=== PATIENT | female | born 1990 | race Caucasian/White ===

== ENCOUNTER 2023-08-30 00:01 | Inpatient (IN) ==
[2023-08-30] MEDS ORDERED: LIDOCAINE 1% LOCAL 20 ML VIAL INFIL PRN (01:38)
[2023-08-30] MEDS ORDERED: OXYTOCIN 30 UNITS/500 ML BAG IV PRN ×2 (01:38→04:36)
[2023-08-30] MEDS: LACTATED RINGER'S 1,000 ML IV PRN ×2 (01:42→03:00)
--- NOTE | 2023-08-30 01:54 | History & Physical Report ---
Date of Service August 30, 2023 Assessment & Plan (1) SROM (spontaneous rupture of membranes): (2) Gestational diabetes mellitus (GDM) affecting : Plan 32 yo G1 at 38 5/7 wga presents w/ srom in labor VSS Fetus cat 2, improving w/ repositioning Labor - grossly ruptured and mendoza nicely. Reviewed plan A1GDM - BG GBS neg desires unmedicated delivery History of Present Illness Chief Complaint: LOF, ctx Primary Care Provider: NO PCP 32 yo G1 at 38 1/7 wga presents w/ c/o LOF, ctx. Called w/ c/o LOF with large gush at 1115pm and ctx that started shortly after. 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: G1 regular cycles denies hx STIs Allergies Allergy/AdvReac Type Severity Reaction Status Date / Time metoclopramide [From Reglan] AdvReac Anxiety Verified 08/30/23 00:26 Home Medications Medication Instructions Recorded Confirmed Type prenat.vits,danelle,[id number] 1 tab PO DAILY 01/28/23 08/30/23 History acetone (urine) test (Ketone Urine #50 ea 05/19/23 08/26/23 Rx Test strips) blood sugar diagnostic (OneTouch #150 ea 05/19/23 08/26/23 Rx Verio test strips) blood-glucose meter (OneTouch #1 ea 05/19/23 08/26/23 Rx Verio Reflect Meter) lancets 33 gauge #150 ea 05/19/23 08/26/23 Rx citalopram 20 mg tablet (Celexa) 30 mg PO DAILY 07/15/23 08/30/23 History Patient History Medical History (Updated 08/30/23 @ 01:52 by Janice Harris MD) Post traumatic stress disorder GI problem Varicella vaccine Hypotension Family History (Updated 01/28/23 @ 13:25 by Lisa Travis, TY) Sister Lupus Kidney disease Heart disease Mother Depression Grandmother (Maternal) Breast cancer Social History (Updated 01/28/23 @ 13:26 by Lisa Travis, TY) Smoking Status: Former smoker Tobacco Type: E-cigarettes / Vaping Do You Dip or Chew Tobacco: No; Hx Alcohol Use: No Hx Substance Use: No Preferred Language: Afghan Communication Ability: Effective Vehicle Refinisher Required: No Beliefs That Will Affect Care: None marital status: marital status details: Ruddy Orantes [phone] Current Living Situation: Spouse Current Living Situation Comment: lives with current occupational status: employed current occupation: works from Home- [employer] Other Information That Helps Us Care for You: Yes (Prior service, anxiety.) Feels Safe at Home: Yes Safety Concerns: Feels Safe At This Time Assistive Devices: Glasses Physical Exam Genitourinary: OB Exam Abdomen: + vertex Manual OB Exam: + cervical dilation 4 cm, + cervical effacement 80%, + station -2 and + amniotic fluid (michael ssly ruptured) OB Exam Monitor Tracing: + external FHT monitor used, + external uterine monitor used and + category II (145/mod/+accel/intermit variables) Results & Data Vital Signs (Past 12 Hours) Vital Signs Temp Pulse Resp BP 08/30/23 00:24 80 129/76 08/30/23 00:15 98.6 F 16 Laboratory Results OB Labs: Blood Type O Positive 02/15/23 Antibody Screen NEGATIVE 02/15/23 Hemoglobin 10.2 g/dl (12.0-16.0) L 07/28/23 Hematocrit 32.4 % (37.0-47.0) L 07/28/23 Mean Corpuscular Volume 83.5 fL (80.0-100.0) 07/28/23 Platelet Count 325 K/uL (130-400) 07/28/23 Rubella IgG Antibody Immune (Immune) 02/15/23 Rapid Plasma Reagin Nonreactive (Nonreactive) 02/15/23 Hepatitis B Surface Antigen. NON-REACTIVE (NON-REACTIVE) 02/15/23 Hepatitis C Antibody (EIA) NON-REACTIVE (NON-REACTIVE) 02/15/23 HIV (1&2) Ag and Ab Confirmation NON-REACTIVE (NON-REACTIVE) 02/15/23 Glucose 1 Hour 50 gm Load 141 mg/dl (70-130) H 03/29/23 Maternal Serum Alpha Fetoprotein 54.0 ng/mL 03/29/23 OB Optional Labs: Chlamydia trachomatis RNA Not Detected (NotDetected) 02/15/23 Neisseria gonorrhoeae RNA Not Detected (NotDetected) 02/15/23 Alpha Fetoprotein Triple Screen SEE NOTE 03/29/23 low risk cfdna gbs neg Diagnostic Findings 08/12 EFW 33%, post plac Coding Level of Care Code None Diagnoses SROM (spontaneous rupture of membranes) Gestational diabetes mellitus (GDM) affecting O24.419
[2023-08-30] MEDS ORDERED: SODIUM CHLORIDE 0.9% PF INJ 10 ML VIAL ONE (02:03)
[2023-08-30] MEDS ORDERED: fentANYL 2 MCG/ML BUPIVacaine 0.125%-NSS 100ML BAG ONE (02:03)
[2023-08-30] MEDS ORDERED: LIDOCAINE 2%/EPINEPHRINE 1:200,000 20 ML PF ONE (02:03)
[2023-08-30] MEDS ORDERED: ePHEDrine sulfate 50 MG/ML AMP ONE (02:03)
[2023-08-30] MEDS ORDERED: BUPIVACAINE 0.25% PF 30 ML VIAL ONE (02:03)
[2023-08-30] MEDS ORDERED: fentaNYL citrate PF 100 MCG/2 ML VIAL ONE (02:03)
[2023-08-30 02:16] LABS: Hematocrit (blood only) 31.4 % (37.0-47.0); Mean Corpuscular Hemoglobin 25.4 pg (25.0-34.0); Mean Corpuscular Hgb Conc 31.8 g/dL (32.0-36.0); Mean Corpuscular Volume 79.9 fL (80.0-100.0); Mean Platelet Volume 10.7 fL (9.4-12.4); Platelet Count 311 K/uL (130-400); RDW Standard Deviation 43.6 fL (36.4-46.3); Red Blood Count 3.93 M/uL (4.20-5.40); White Blood Count 12.98 K/ul (4.8-10.8)
[2023-08-30] MEDS ORDERED: BUPIVACAINE 0.25% PF 30 ML VIAL EPI STA (02:33)
[2023-08-30] MEDS ORDERED: diphenhydrAMINE 50 MG/ML VIAL IV PRN (02:33)
[2023-08-30] MEDS ORDERED: SODIUM CHLORIDE 0.9% PF INJ 10 ML VIAL EPI STA (02:33)
[2023-08-30] MEDS ORDERED: NALBUPHINE HCL 5 MG in SYRINGE 0 ML IV PRN (02:33)
[2023-08-30] MEDS ORDERED: ePHEDrine sulfate 50 MG/ML AMP IV PRN (02:33)
[2023-08-30] MEDS ORDERED: NALOXONE HCL 1 MG in SODIUM CHLORIDE 0.9% 1,000 ML IV PRN (02:33)
[2023-08-30] MEDS ORDERED: fentaNYL citrate PF 100 MCG/2 ML VIAL EPI STA (02:33)
[2023-08-30] MEDS ORDERED: BUPIVACAINE 0.25% PF 30 ML VIAL EPI PRN (02:33)
[2023-08-30] MEDS ORDERED: LIDOCAINE 2% MPF LOCAL 5 ML VIAL EPI PRN (02:33)
[2023-08-30] MEDS ORDERED: fentANYL 2 MCG/ML BUPIVacaine 0.125%-NSS 100ML BAG EPI PRN (02:33)
[2023-08-30] MEDS ORDERED: LIDOCAINE 2%/EPINEPHRINE 1:200,000 20 ML PF EPI STA (02:33)
[2023-08-30] MEDS ORDERED: SODIUM CHLORIDE 0.9% PF INJ 10 ML VIAL EPI PRN (02:33)
[2023-08-30] MEDS ORDERED: NALOXONE HCL 0.4 MG/1 ML VIAL/CARP IV PRN (02:33)
[2023-08-30] MEDS ORDERED: ROPIVACAINE 0.5% PF 5 MG/ML 20 ML VIAL EPI PRN (02:33)
[2023-08-30] MEDS ORDERED: fentaNYL citrate PF 100 MCG/2 ML VIAL EPI PRN (02:33)
--- NOTE | 2023-08-30 02:33 | Anesthesiology Consultation ---
Date of Service August 30, 2023 Assessment & Plan (1) Encounter for pre-operative examination: Chart Review Chart Review: Patient NOT seen in Pre Admission Testing and Acceptable Risk for Labor Epidural Consults Requested none History Height/Weight Height: 5 ft 9 in Weight: 92.805 kg Allergies Allergy/AdvReac Type Severity Reaction Status Date / Time metoclopramide [From Reglan] AdvReac Anxiety Verified 08/30/23 00:26 Medications Home Medications Medication Instructions Recorded Confirmed Last Taken prenat.vits,danelle,[id number] 1 tab PO DAILY 01/28/23 08/30/23 08/29/23 08:00 acetone (urine) test (Ketone Urine #50 ea 05/19/23 08/26/23 Unknown Test strips) blood sugar diagnostic (OneTouch #150 ea 05/19/23 08/26/23 Unknown Verio test strips) blood-glucose meter (OneTouch #1 ea 05/19/23 08/26/23 Unknown Verio Reflect Meter) lancets 33 gauge #150 ea 05/19/23 08/26/23 Unknown citalopram 20 mg tablet (Celexa) 30 mg PO DAILY 07/15/23 08/30/23 08/29/23 20:00 Active Medications Generic Name Dose Route Start Last Admin Trade Name Freq PRN Reason Stop Dose Admin Lactated Ringer's 1,000 mls @ 125 mls/hr 08/30/23 01:38 08/30/23 01:42 Lr IV 09/01/23 01:37 999 mls/hr .Q8H PRN Administration L&D Protocol Protocol Past Medical History Medical History Post traumatic stress disorder GI problem Varicella vaccine Hypotension Past Family History Family History Sister Lupus Kidney disease Heart disease Mother Depression Grandmother (Maternal) Breast cancer Social History Smoking Status: Former smoker Do You Dip or Chew Tobacco: No Hx Alcohol Use: No Hx Substance Use: No Physical Exam Vital Signs Last Vital Signs Temp 98.6 F 08/30/23 00:15 Pulse 88 08/30/23 02:31 Resp 16 08/30/23 00:15 BP 129/76 08/30/23 00:24 Pulse Ox 93 08/30/23 02:31 Testing Laboratory Results 08/30/23 01:54 08/30/23 01:46 POC Glucose 87
--- NOTE | 2023-08-30 04:17 | Delivery Summary ---
Vaginal Delivery Summary Date of Service August 30, 2023 Vaginal Delivery Summary PREOPERATIVE DIAGNOSIS: 1. Single intrauterine at 38 5/7 wga 2. SROM 3. A1GDM 4. SMA carrier POSTOPERATIVE DIAGNOSIS: 1. Single intrauterine at 38 5/7 wga 2. SROM 3. A1GDM 4. SMA carrier 5. Delivered PROCEDURE: 1. Normal spontaneous vaginal delivery. SURGEON: Janice Harris MD ANESTHESIA: Epidural. ESTIMATED BLOOD LOSS: 300 mL FLUIDS: Continuous LR. URINE OUTPUT: None. COMPLICATIONS: None. CONDITION: Stable. INDICATIONS: 32 yo G1 at 38 5/7 wga presented w/ SROM and contractions, 4cm on arrival. She received an epidural but quickly progressed to complete and desired to push FINDINGS: A viable male infant, weight pending with Apgars of 8 and 8 at 1 and 5 minutes respectively. SPECIMEN: Cord blood OPERATIVE REPORT: The patient progressed to 10 cm, 100% effaced and +2 station, pushed over intact perineum with anesthesia to deliver a viable male infant, weight and Apgars as above. Head of delivered in YONG position. Nuchal cord x 2 was noted and delivered through as could not reduce. Body and shoulders were delivered without difficulty. was delivered to maternal abdomen and nursing staff. Delayed cord clamping was performed for 60 seconds. Cord was clamped and cut. Cord blood was obtained. Placenta delivered spontaneously intact with 3-vessel cord. IV oxytocin and fundal massage were given for excellent hemostasis. Vagina, cervix, perineum, and placenta were inspected. A vaginal laceration was noted and repaired using 3-0 vicryl. Hemostatic labial lacerations bilaterally did not need repaired. Sponge and needle counts correct x2. No sponges were left behind. Mother and stable in immediate period. [facility] [place]aginal Delivery Charge Vaginal Delivery Codes: 46758 global code for the antepartum, delivery, and post- Delivery Type Details: [facility]
[2023-08-30] MEDS ORDERED: bisacodyL 10 MG SUPP PR PRN (04:36)
[2023-08-30] MEDS ORDERED: BENZOCAINE 20% SPRY 85 APPLN/85 GM CAN EXT PRN (04:36)
[2023-08-30] MEDS ORDERED: ACETAMINOPHEN 325 MG TAB PO PRN (04:36)
[2023-08-30] MEDS ORDERED: DIPHTHERIA/TETANUS/PERTUSSIS Vaccine (Tdap, Age 7+yrs) 0.5mL SYR/VL IM ONE (04:36)
[2023-08-30] MEDS ORDERED: HYDROCORTISONE ACETATE 25 MG SUPP PR PRN (04:36)
--- NOTE | 2023-08-30 08:24 | Anesthesia Procedure Note ---
Date of Service August 30, 2023 Anesthesia Post Epidural Note Vital Signs Vital Signs: Temp Pulse Resp BP Pulse Ox 98.4 F 90 18 120/63 97 08/30/23 02:33 08/30/23 06:14 08/30/23 05:10 08/30/23 06:14 08/30/23 05:08 Pain Intensity Lower Abdomen: Pain Intensity: 0 Notes Mental Status: alert / awake / arousable and participated in evaluation Nausea / Vomiting: adequately controlled Pain: adequately controlled Airway Patency, RR, SpO2: stable & adequate BP & HR: stable & adequate Hydration State: stable & adequate Neuraxial Anesthesia: was administered and sensory block is resolving Anesthetic Complications: no major complications apparent and Pt Satisfied with anesthetic care Epidural: Removed without complications and With tip intact
[2023-08-30] MEDS: PRENATAL VITAMIN 1 TAB PO SCH (09:45)
[2023-08-30] MEDS: DOCUSATE SODIUM 100 MG CAP PO SCH ×2 (09:45→21:36)
[2023-08-30] MEDS: FERROUS SULFATE 325 MG TAB PO SCH (09:46)
[2023-08-30] MEDS: CITALOPRAM 20 MG TAB PO SCH (09:46)
--- NOTE | 2023-08-31 07:36 | Obstetrical Progress Note ---
Date of Service August 31, 2023 Assessment & Plan (1) care following vaginal delivery: Plan: Doing well encourage ambulation pain control dc today Admission and Anticipated Discharge Date Admission Date: August 30, 2023 Supervising Physician Co-Signing Physician Notes Resident Physician Supervision Note: I was present with Dr. Owens during the history and exam. I discussed the case with the resident and agree with the findings and plan as documented in the note. Any exceptions or clarifications are listed here: [None] Documented By: Opal Jean Baptiste MD, FACOG Subjective 32 yo post day 1 s/p Ambulation: ambulating normally Voiding: no voiding problems Passing Gas:: Yes Diet Tolerance:: regular diet Lochia:: Small Feeding Type:: breast feeding Current Pain Level: mild Resting comfortably this AM in NAD. Denies SHARP, CP, SOB, N/V/D, LE pain/swelling. Review of Systems Review of Systems: reviewed, per HPI Physical Exam Physical Exam: General: patient resting comfortably, NAD, non-toxic in appearance, answers questions appropriately. Skin: warm, dry, intact HEENT: NC/AT, anicteric sclera, conjunctiva without injection, moist mucus membranes. Heart: +S1/S2, regular, no m/r/g Lungs: equal air entry bilaterally, no rales/rhonchi/wheezes Abd: +BS, soft, NT/ND, uterine fundus firm at umbilicus. Ext: warm, no clubbing/cyanosis or edema, Kasey's neg. Neuro: nonfocal, patient AA&O x 4, speech intact, no facial droop, moving all extremities on command. Results & Data Vital Signs (Past 12 Hours) Vital Signs Temp Pulse Resp BP Pulse Ox O2 Del Method 08/31/23 03:27 37.1 C 83 18 118/65 96 Room Air 08/30/23 23:11 37 C 88 18 120/70 98 Room Air Resident Activity Tracking Resident Involvement: Resident Care Provided Care Provided: Adult Hospital Medicine
[2023-08-31] MEDS: PRENATAL VITAMIN 1 TAB PO SCH (08:01)
[2023-08-31] MEDS: CITALOPRAM 20 MG TAB PO SCH (08:01)
[2023-08-31] MEDS: DOCUSATE SODIUM 100 MG CAP PO SCH (08:01)
[2023-08-31] MEDS: IBUPROFEN 600 MG TAB PO PRN ×2 (08:01→12:41)
[2023-08-31] MEDS: FERROUS SULFATE 325 MG TAB PO SCH (08:03)
[2023-08-31] MEDS ORDERED: bisacodyL 5 MG TABEC PO SCH (20:00)
--- NOTE | 2023-09-01 15:04 | Coding Query ---
CODING QUERY To promote full compliance with coding requirements relating to patient care, provider participation is requested in all cases of chair car attendant uncertainty. Please assist us with the question(s) below: Coding Question(s): Please clarify the degree of OB laceration. Physician's Response(s): 1st Degree ( ) 2nd Degree ( ) 3rd Degree ( ) Other ( XX ) vaginal Thank you Trinidad Law Principal Diagnosis: "that condition established after study, to be chiefly responsible for occasioning the admission of the patient to the hospital for care." Co-Existing Principal Diagnosis: "when two or more diagnoses equally meet the criteria for principal diagnosis as determined by the circumstances of admission, diagnostic work up, and/or therapy provided, and the Alphabetic Index, Tabular List, or another coding guideline does not provide sequencing direction, any one of the diagnoses may be sequenced first." "When the physician has documented what appears to be a current diagnosis in the body of the record, but has not included the diagnosis in the final diagnostic statement, the physician should be asked whether the diagnosis should be added." (Source Coding [facility] 2 QTR90. p3-4) [facility]
== END 2023-08-31 14:30 | disposition home or self-care (01) | DRG 806 ==
LOC: OPB 00:01 → 4S1 00:04 → 4E1 06:49